=== PATIENT | male | born 1945 | race Caucasian/White ===

== ENCOUNTER 2022-04-19 11:14 | Outpatient (REF) | payer MEDICARE, SELFPAY ==
--- NOTE | ~2022-04-19 | XR_ITS ---
EXAMINATION: XR FOOT, RIGHT CLINICAL INFORMATION: Pain COMPARISON: Radiographs right foot 09/22/2014. TECHNIQUE: AP, lateral, and oblique views of the right foot. FINDINGS: There is no acute or healing fracture or destructive process. There is old healed fracture base fourth toe proximal phalanx and an orthopedic screw again seen traversing the medial and middle cuneiforms. Hardware is intact. There is no destructive process or osteolysis. There are posterior calcaneal spurs. The retrocalcaneal recess is preserved. The subtalar joint is unremarkable. There is spurring at the dorsum tarsal navicular. Osteoarthritis involves first MTP with joint narrowing and spurring. There is also spurring lateral base fifth metatarsal near the tendon insertion. XR/XR foot RT min 3V IMPRESSION: -Osteoarthritis first MTP. -Posterior calcaneal spur.
== END 2022-04-19 11:15 | disposition home or self-care (01) ==
LOC: HO.HOSX 11:14
PROVIDERS: Visit Provider Physician Assistant
DX: M19.171 Post-traumatic osteoarthritis, right ankle and foot (principal); T84.84XA Pain due to internal orthopedic prosthetic devices, implants and grafts, initial encounter
CPT/HCPCS: 73630; 99202